=== PATIENT | female | born 1990 | race Caucasian/White ===

== ENCOUNTER → 2016-09-02 | Outpatient (CLI) | payer OTHER ==
[~2016-09-02] VITALS: Ht 166.4 cm; Wt 95.9 kg
[~2016-09-02] MED LIST: BAYER CHEWABLE81 MG PO; ENDOCET 5-3251 EACH PO; IBUPROFEN800 MG PO; LABETALOL HCL100 MG PO; PRENATAL TABLE1 EAC3 PO; SERTRALINE HCL100 MG PO
[2016-09-02 13:45] VITALS: BP 161/75
[2016-09-02 13:46] VITALS: BP 139/71
== END | disposition home or self-care (01) ==
LOC: IVINF 13:30
DX: O36.0920 Maternal care for other rhesus isoimmunization, second trimester, not applicable or unspecified (principal); Z3A.24 24 weeks gestation of pregnancy
CPT/HCPCS: 96372; J2790

== ENCOUNTER 2016-10-29 11:20 | Outpatient (CLI) | payer OTHER ==
[2016-10-29] VITALS (38 sets, daily range): BP systolic 127–185; BP diastolic 62–93
[~2016-10-29] VITALS: Ht 165.1 cm; Wt 100.0 kg
[2016-10-29] MEDS ORDERED: LABETALOL HCL100 MG PO (12:09)
[2016-10-29 13:00] LABS: ANION GAP 12 MEQ/L (2-14); CHLORIDE 107 MEQ/L (99-109); POTASSIUM 2.9 MEQ/L (3.7-5.4); SAMPLE HEMOLYSIS CHECK 0; SAMPLE ICTERIC CHECK 0; SAMPLE LIPEMIA CHECK 0; SODIUM 140 MEQ/L (136-147); TOTAL BILIRUBIN 0.2 MG/DL (0.0-1.0)
[2016-10-29 13:06] LABS: UR CREATININE CONCENTRATION 109.1 MG/DL
[2016-10-29 13:06] LABS: ALKALINE PHOSPHATASE 140 IU/L (3-129); GFR ESTIMATE (CALCULATED) > 59 mL/min/; GLUCOSE 117 mg/dL (70-99); UREA NITROGEN (BUN) 5 mg/dL (9-23)
[2016-10-29 13:11] LABS: EOSINOPHIL (%) 0.3 % (0-5); IMMATURE GRANULOCYTE (%) 0.7 % (0.0-0.7); IMMATURE GRANULOCYTE COUNT 0.1 K/uL; INSTRUMENT ABS NEUTROPHIL CT 7.5 K/uL; LYMPHOCYTE COUNT 2.2 K/uL (1.0-2.8); MCH 29.9 PG (29.0-34.0); MCHC 34.3 G/DL (30.0-36.0); MCV 87.2 FL (83-99); MEAN PLAT.VOLUME 9.9 uM^3 (9.5-12.4); MONOCYTE (%) 3.7 % (3-12); MONOCYTE COUNT 0.4 K/uL (0-0.8); NEUTROPHIL (%) 73.5 % (45-76); NEUTROPHIL COUNT 7.5 K/uL (1.8-6.4); PLATELET COUNT 346 K/uL (156-360); RBC DIS.WIDTH-SD 38.5 % (39-53); RED BLOOD COUNT 3.21 M/uL (3.80-5.20); WHITE BLOOD COUNT 10.2 K/uL (4.1-10.2)
[2016-10-29 17:03] LABS: EOSINOPHIL (%) 0.3 % (0-5); HEMATOCRIT 28.1 % (36.0-46.0); IMMATURE GRANULOCYTE (%) 0.4 % (0.0-0.7); IMMATURE GRANULOCYTE COUNT 0.1 K/uL; INSTRUMENT ABS NEUTROPHIL CT 8.6 K/uL; LYMPHOCYTE COUNT 2.3 K/uL (1.0-2.8); MCH 30.1 PG (29.0-34.0); MCHC 34.2 G/DL (30.0-36.0); MCV 88.1 FL (83-99); MEAN PLAT.VOLUME 9.8 uM^3 (9.5-12.4); MONOCYTE (%) 3.9 % (3-12); MONOCYTE COUNT 0.5 K/uL (0-0.8); NEUTROPHIL (%) 75.2 % (45-76); NEUTROPHIL COUNT 8.6 K/uL (1.8-6.4); PLATELET COUNT 321 K/uL (156-360); RBC DIS.WIDTH-CV 12.2 % (11.8-14.6); RBC DIS.WIDTH-SD 39.5 % (39-53); RED BLOOD COUNT 3.19 M/uL (3.80-5.20); WHITE BLOOD COUNT 11.5 K/uL (4.1-10.2)
[2016-10-29] MEDS ORDERED: K-DUR20 MEQ PO (22:15)
== END 2016-10-29 22:25 | disposition home or self-care (01) ==
LOC: LDRP-OP → 2WEST 11:21 → LDRP-OP 12-21 10:06
PROVIDERS: Nurse Practitioner
DX: O10.013 Pre-existing essential hypertension complicating pregnancy, third trimester (principal); Z3A.36 36 weeks gestation of pregnancy
CPT/HCPCS: 59025; 80053; 82570; 84156; 85025; 85025 91; G0378; J3480

== ENCOUNTER 2016-11-01 20:23 | Inpatient (IN) | payer OTHER ==
[2016-11-01] VITALS (7 sets, daily range): BP systolic 144–194; BP diastolic 88–106
[~2016-11-01] VITALS: Ht 165.1 cm; Wt 100.4 kg
[~2016-11-01 20:23] MED LIST changes: +K-DUR20 MEQ PO
[2016-11-01 21:02] LABS: EOSINOPHIL (%) 0.4 % (0-5); EOSINOPHIL COUNT 0.1 K/uL (0-0.3); HEMATOCRIT 27.9 % (36.0-46.0); IMMATURE GRANULOCYTE (%) 0.5 % (0.0-0.7); IMMATURE GRANULOCYTE COUNT 0.1 K/uL; INSTRUMENT ABS NEUTROPHIL CT 7.9 K/uL; LYMPHOCYTE COUNT 2.7 K/uL (1.0-2.8); MCHC 34.8 G/DL (30.0-36.0); MCV 86.4 FL (83-99); MONOCYTE (%) 4.3 % (3-12); MONOCYTE COUNT 0.5 K/uL (0-0.8); NEUTROPHIL (%) 70.3 % (45-76); NEUTROPHIL COUNT 7.9 K/uL (1.8-6.4); PLATELET COUNT 365 K/uL (156-360); RBC DIS.WIDTH-CV 11.8 % (11.8-14.6); RBC DIS.WIDTH-SD 37.2 % (39-53); RED BLOOD COUNT 3.23 M/uL (3.80-5.20); WHITE BLOOD COUNT 11.3 K/uL (4.1-10.2)
[2016-11-01 21:12] LABS: ANION GAP 9 MEQ/L (2-14); CHLORIDE 107 MEQ/L (99-109); POTASSIUM 3.3 MEQ/L (3.7-5.4); SAMPLE HEMOLYSIS CHECK 0; SAMPLE ICTERIC CHECK 0; SAMPLE LIPEMIA CHECK 0; SODIUM 139 MEQ/L (136-147); TOTAL BILIRUBIN 0.2 MG/DL (0.0-1.0)
[2016-11-01 21:18] LABS: AMPHETAMINES QUANT VALUE 0 NG/ML; BARBITUATES QUANT VALUE 0 NG/ML; BENZODIAZEPINES QUANT VALUE 0 NG/ML; BENZODIAZEPINES, URINE SCREEN Negative (200 ng/mL); OPIATES QUANTITATIVE VALUE 0 NG/ML; PHENCYCLIDINE QUANT VALUE 0 NG/ML
[2016-11-01 21:22] LABS: ALKALINE PHOSPHATASE 151 IU/L (3-129); GFR ESTIMATE (CALCULATED) > 59 mL/min/; GLUCOSE 69 mg/dL (70-99); UREA NITROGEN (BUN) 7 mg/dL (9-23)
[2016-11-02] VITALS (22 sets, daily range): BP systolic 130–196; BP diastolic 69–103
[2016-11-02] MEDS ORDERED: IBUPROFEN800 MG PO (12:38)
[2016-11-03 07:45] VITALS: BP 161/93
[2016-11-03 09:26] VITALS: BP 147/83
[2016-11-03 11:12] VITALS: BP 137/80
[2016-11-03 15:06] VITALS: BP 144/73
[2016-11-03] MEDS ORDERED: LABETALOL HCL200 MG PO (16:49)
== END 2016-11-03 17:40 | disposition left against medical advice (07) | DRG 774 ==
LOC: LDRP-OP 20:23 → 2WEST 20:24 → LDRP-OP 12-29 23:03
PROVIDERS: Midwife
DX: O10.92 Unspecified pre-existing hypertension complicating childbirth (principal); O69.81X0 Labor and delivery complicated by cord around neck, without compression, not applicable or unspecified; O99.344 Other mental disorders complicating childbirth; F41.9 Anxiety disorder, unspecified; F42.9 Obsessive-compulsive disorder, unspecified; F32.9 Major depressive disorder, single episode, unspecified; O99.62 Diseases of the digestive system complicating childbirth; K21.9 Gastro-esophageal reflux disease without esophagitis; Z3A.37 37 weeks gestation of pregnancy; Z37.0 Single live birth
CPT/HCPCS: 80053; 80306 90; 82570; 84156; 85025; G0378; J2590

== ENCOUNTER 2016-11-06 15:58 | Emergency (ER) | payer OTHER ==
[~2016-11-06] VITALS: Ht 165.1 cm; Wt 95.7 kg
[~2016-11-06 15:58] MED LIST changes: +LABETALOL HCL200 MG PO
[2016-11-06 17:17] LABS: HEMATOCRIT 29.4 % (36.0-46.0); MCH 29.7 PG (29.0-34.0); MCV 87.2 FL (83-99); MEAN PLAT.VOLUME 9.3 uM^3 (9.5-12.4); PLATELET COUNT 448 K/uL (156-360); RBC DIS.WIDTH-CV 11.8 % (11.8-14.6); RBC DIS.WIDTH-SD 37.7 % (39-53); RED BLOOD COUNT 3.37 M/uL (3.80-5.20); WHITE BLOOD COUNT 8.7 K/uL (4.1-10.2)
[2016-11-06 17:27] LABS: CHLORIDE 110 mEq/L (99-109); MAGNESIUM 1.9 mg/dL (1.3-2.7); POTASSIUM 3.6 mEq/L (3.7-5.4); SODIUM 142 mEq/L (136-147)
[2016-11-06 17:28] LABS: GLUCOSE 92 mg/dL (70-99)
[2016-11-06 17:30] LABS: ANION GAP 12 MEQ/L (2-14)
[2016-11-06 17:32] LABS: GFR ESTIMATE (CALCULATED) > 59 mL/min/
[2016-11-06 17:33] LABS: UREA NITROGEN (BUN) 11 mg/dL (9-23)
[2016-11-06 18:18] LABS: TOTAL BILIRUBIN 0.3 mg/dL (0.0-1.0)
[2016-11-06 18:19] LABS: ALKALINE PHOSPHATASE 106 IU/L (3-129)
[2016-11-06 18:21] LABS: DIRECT BILIRUBIN 0.1 mg/dL (0.0-0.3)
[2016-11-06 18:22] LABS: URIC ACID 5.3 mg/dL (3.1-9.2)
[2016-11-06 18:29] LABS: INTER. NORMALIZED RATIO 0.9; PROTHROMBIN TIME 9.5 (9.2-11.2)
[2016-11-06 18:32] LABS: ADD MIUA? YES; BILIRUBIN NEGATIVE; BLOOD MODERATE; COLOR YELLOW ((YELLOW)); GLUCOSE (STRIP) NEGATIVE; KETONES NEGATIVE; LEUKOCYTES SMALL; NITRITE NEGATIVE; PROTEIN (STRIP) NEGATIVE; SPECIFIC GRAVITY 1.009 (1.000-1.030); UROBILINOGEN 0.2 MG/DL (0.2-1.0)
[2016-11-06 18:41] LABS: BACTERIA NONE SEEN /HPF; EPITHELIAL CELLS RARE /HPF; MUCUS NONE SEEN /LPF; RED BLOOD CELLS 0-5 /HPF (0-5); WHITE BLOOD CELLS 20-30 /HPF (0-5)
[2016-11-06] MEDS ORDERED: PROCARDIA XL60 MG PO (19:12)
[2016-11-06 20:06] VITALS: BP 204/114
== END 2016-11-06 21:10 | disposition home or self-care (01) ==
LOC: EXP 15:58 → EME 15:58 → EXP 21:10
PROVIDERS: Emergency Medicine; Physician Assistant
DX: O16.5 Unspecified maternal hypertension, complicating the puerperium (principal); O90.81 Anemia of the puerperium; D64.9 Anemia, unspecified; E87.6 Hypokalemia
CPT/HCPCS: 80048; 80076; 81003; 83735; 84550; 85027; 85610; 85730; 93005; 99281; 99284